=== PATIENT | female | born 1955 | race African-American/Black ===

== ENCOUNTER 2016-09-25 09:32 | Emergency (ER) | payer OTHER ==
[~2016-09-25] VITALS: Ht 160 cm; Wt 115.3 kg
[~2016-09-25 09:32] MED LIST: BYSTOLIC10 MG PO; CYMBALTA30 MG PO; EXFORGE 10/31 TABLET PO; EXFORGE HCT 101 EAC2 PO; HYDROCHLOROTHIA25 MG; HYDROCHLOROTHIA25 MG PO; LIDODERM 5% P1 PATCH TP; MELOXICAM15 MG PO; PROTONIX40 MG PO; VICTOZA0.6 MG/0.2
[2016-09-25 10:58] LABS: EOSINOPHIL (%) 1.3 % (0-5); EOSINOPHIL COUNT 0.1 K/uL (0-0.3); HEMATOCRIT 40.1 % (36.0-46.0); IMMATURE GRANULOCYTE (%) 0.5 % (0.0-0.7); INSTRUMENT ABS NEUTROPHIL CT 4.2 K/uL; LYMPHOCYTE COUNT 1.5 K/uL (1.0-2.8); MCH 25.6 PG (29.0-34.0); MCHC 31.9 G/DL (30.0-36.0); MCV 80.2 FL (83-99); MEAN PLAT.VOLUME 11.9 uM^3 (9.5-12.4); MONOCYTE COUNT 0.3 K/uL (0-0.8); NEUTROPHIL (%) 67.8 % (45-76); NEUTROPHIL COUNT 4.2 K/uL (1.8-6.4); PLATELET COUNT 223 K/uL (156-360); RBC DIS.WIDTH-CV 14.5 % (11.8-14.6); WHITE BLOOD COUNT 6.2 K/uL (4.1-10.2)
[2016-09-25 11:24] LABS: CHLORIDE 105 mEq/L (99-109); POTASSIUM 4.6 mEq/L (3.7-5.4); SODIUM 139 mEq/L (136-147)
[2016-09-25 11:26] LABS: GLUCOSE 95 mg/dL (70-99)
[2016-09-25 11:27] LABS: ANION GAP 14 MEQ/L (2-14)
[2016-09-25 11:28] LABS: TOTAL BILIRUBIN 0.5 mg/dL (0.0-1.0)
[2016-09-25 11:29] LABS: ALKALINE PHOSPHATASE 54 IU/L (3-129)
[2016-09-25 11:30] LABS: GFR ESTIMATE (CALCULATED) 59 mL/min/
[2016-09-25 11:31] LABS: UREA NITROGEN (BUN) 20 mg/dL (9-23)
[2016-09-25 12:57] LABS: ADD MIUA? NO; BILIRUBIN NEGATIVE; BLOOD NEGATIVE; COLOR YELLOW ((YELLOW)); GLUCOSE (STRIP) NEGATIVE; KETONES NEGATIVE; LEUKOCYTES NEGATIVE; NITRITE NEGATIVE; PROTEIN (STRIP) NEGATIVE; SPECIFIC GRAVITY 1.011 (1.000-1.030); UCUL ADDED? NO; UROBILINOGEN 0.2 MG/DL (0.2-1.0)
[2016-09-25 13:49] VITALS: BP 114/69
== END 2016-09-25 13:51 | disposition home or self-care (01) ==
LOC: EXP 09:32 → EME 09:32 → EXP 13:51
PROVIDERS: Physician Assistant
DX: K52.9 Noninfective gastroenteritis and colitis, unspecified (principal); E11.9 Type 2 diabetes mellitus without complications; I10 Essential (primary) hypertension; Z98.84 Bariatric surgery status
CPT/HCPCS: 80053; 81003; 85025; 87493; 87506; 99281; 99285

== ENCOUNTER 2016-11-29 05:06 | Inpatient (IN) | payer OTHER ==
[~2016-11-29] VITALS: Ht 157.5 cm; Wt 109.0 kg
[~2016-11-29 05:06] MED LIST changes: +BRINTELLIX5 MG PO; +CELEBREX200 MG PO; +DIOVAN80 MG PO; +GLUCOPHAGE XR750 MG PO; +IRON325 M1 PO; +LIPITOR10 MG PO; +NEXIUM20 MG PO; +TRADJENTA5 MG PO; +ULTRAM50 MG PO; +VITAMIN D31000 UNI2 PO
[2016-11-29] MEDS ORDERED: ANIMAL CHEWS1 EACH PO (05:54)
[2016-11-29 06:04] VITALS: BP 129/58
[2016-11-29 06:19] LABS: POINT-OF-CARE METER ID UU13113694
[2016-11-29 10:11] LABS: POINT-OF-CARE METER ID UU13113675
[2016-11-29 10:37] LABS: POINT-OF-CARE METER ID UU13113675
[2016-11-29 11:45] VITALS: BP 106/71
[2016-11-29 12:09] LABS: POINT-OF-CARE METER ID UU13113712
[2016-11-29 13:25] VITALS: BP 121/61
[2016-11-29 15:45] VITALS: BP 102/53
[2016-11-29 16:19] LABS: POINT-OF-CARE METER ID UU13113712
[2016-11-29 18:31] VITALS: BP 110/53
[2016-11-29 20:24] VITALS: BP 110/56
[2016-11-29 21:41] LABS: POINT-OF-CARE METER ID UU13113712
[2016-11-30 00:30] VITALS: BP 106/51
[2016-11-30 04:17] VITALS: BP 115/61
[2016-11-30 08:00] VITALS: BP 116/68
[2016-11-30 08:01] LABS: ANION GAP 11 MEQ/L (2-14); CHLORIDE 105 MEQ/L (99-109); GFR ESTIMATE (CALCULATED) 59 mL/min/; GLUCOSE 106 mg/dL (70-99); POTASSIUM 3.6 MEQ/L (3.7-5.4); SAMPLE HEMOLYSIS CHECK 0; SAMPLE ICTERIC CHECK 0; SAMPLE LIPEMIA CHECK 0; SODIUM 140 MEQ/L (136-147); UREA NITROGEN (BUN) 17 mg/dL (9-23)
[2016-11-30 08:09] LABS: POINT-OF-CARE METER ID UU13113712
[2016-11-30 11:50] VITALS: BP 118/61
[2016-11-30 11:51] LABS: POINT-OF-CARE METER ID UU13113712
[2016-11-30 16:06] VITALS: BP 134/61
[2016-11-30 16:47] LABS: POINT-OF-CARE METER ID UU13113712
[2016-11-30 20:04] VITALS: BP 139/74
[2016-11-30 21:46] LABS: POINT-OF-CARE METER ID UU13113712
[2016-12-01] VITALS: BP 138/62
[2016-12-01 04:30] VITALS: BP 175/74
[2016-12-01 07:31] LABS: POINT-OF-CARE METER ID UU13113712
[2016-12-01 08:00] VITALS: BP 123/59
[2016-12-01] MEDS ORDERED: ELIQUIS2.5 MG PO (09:27)
[2016-12-01] MEDS ORDERED: ENDOCET 5-3251 EACH PO (09:27)
[2016-12-01 11:27] LABS: POINT-OF-CARE METER ID UU13113712
[2016-12-01 12:00] VITALS: BP 135/63
[2016-12-01 15:50] VITALS: BP 126/60
[2016-12-01 16:40] LABS: POINT-OF-CARE METER ID UU13113712
[2016-12-01 20:09] VITALS: BP 132/70
[2016-12-01 22:15] LABS: POINT-OF-CARE METER ID UU13113712
[2016-12-02 00:20] VITALS: BP 127/56
[2016-12-02 04:30] VITALS: BP 133/61
[2016-12-02 07:43] LABS: POINT-OF-CARE METER ID UU13113712
[2016-12-02 08:21] VITALS: BP 117/56
== END 2016-12-02 10:30 | DRG 470 ==
LOC: 3WEST 05:06 → 2SOUTH 05:06 → 3WEST 10:55 → 2SOUTH 13:19 → 3WEST 12-02 10:30
PROVIDERS: Orthopaedic Surgery
PROC: 0SRD0J9 Replacement of Left Knee Joint with Synthetic Substitute, Cemented, Open Approach (ICD-10-PCS; principal; 2016-11-29)
DX: M17.12 Unilateral primary osteoarthritis, left knee (principal); Z68.41 Body mass index [BMI] 40.0-44.9, adult; M23.8X1 Other internal derangements of right knee; E78.00 Pure hypercholesterolemia, unspecified; I10 Essential (primary) hypertension; G89.29 Other chronic pain; N32.81 Overactive bladder; E11.42 Type 2 diabetes mellitus with diabetic polyneuropathy; E11.65 Type 2 diabetes mellitus with hyperglycemia; E66.9 Obesity, unspecified
CPT/HCPCS: 71010; 80048; 82948; C1713; J0131; J0690; J1815; J1885; J2250; J7050; J7120; L1820; S0020

== ENCOUNTER 2017-04-17 12:42 | Observation (INO) | payer OTHER ==
[~2017-04-17] VITALS: Ht 154.9 cm; Wt 106.0 kg
[~2017-04-17 12:42] MED LIST changes: +ELIQUIS2.5 MG PO; +ENDOCET 5-3251 EACH PO; +GLUCOPHAGE XR,500 MG PO; -GLUCOPHAGE XR750 MG PO; +WOMEN'S MULTI200 MCG PO
[2017-04-17 14:41] LABS: HEMATOCRIT 39.6 % (36.0-46.0); MCHC 31.6 G/DL (30.0-36.0); RBC DIS.WIDTH-CV 15.7 % (11.8-14.6); RBC DIS.WIDTH-SD 44.6 % (39-53); RED BLOOD COUNT 5.01 M/uL (3.80-5.20); WHITE BLOOD COUNT 6.3 K/uL (4.1-10.2)
[2017-04-17 14:55] LABS: CHLORIDE 106 mEq/L (99-109); POTASSIUM 3.8 mEq/L (3.7-5.4); SODIUM 140 mEq/L (136-147)
[2017-04-17 14:57] LABS: GLUCOSE 87 mg/dL (70-99)
[2017-04-17 14:58] LABS: ANION GAP 11 MEQ/L (2-14)
[2017-04-17 15:01] LABS: GFR ESTIMATE (CALCULATED) > 59 mL/min/
[2017-04-17 15:02] LABS: UREA NITROGEN (BUN) 22 mg/dL (9-23)
[2017-04-17 15:05] LABS: TROP-I INTERPRETATION NEGATIVE; TROPONIN-I < 0.01 ng/mL (0.0-0.30)
[2017-04-17 15:36] LABS: MEAN PLAT.VOLUME 11.4 uM^3 (9.5-12.4); PLAT.SUFFICIENCY ADEQUATE; PLATELET COUNT 171 K/uL (156-360)
[2017-04-17] MEDS ORDERED: [UNRECOGNIZED DRUG - CODE] SC (16:04)
[2017-04-17] MEDS ORDERED: CELEBREX200 MG PO (16:04)
[2017-04-17] MEDS ORDERED: TRAMADOL HCL50 MG PO (16:04)
[2017-04-17 18:57] LABS: LACTATE DEHYDROGENASE 241 IU/L (20-246)
[2017-04-17 19:54] VITALS: BP 144/74
[2017-04-17 20:40] LABS: HDL CHOLESTEROL 57 MG/DL (Desirable>=50); LDL CHOLESTEROL 70 mg/dL (Desirable<100); NON-HDL CHOLESTEROL 81 mg/dL (Desirable<160); TOTAL CHOLESTEROL 138 mg/dL (Desirable<200); TRIGLYCERIDES 56 MG/DL (Normal: <150)
[2017-04-17 20:42] LABS: TROP-I INTERPRETATION NEGATIVE; TROPONIN-I 0.01 ng/mL (0.0-0.30)
[2017-04-17 21:58] LABS: POINT-OF-CARE METER ID UU14162513
[2017-04-17 22:04] VITALS: BP 140/72
[2017-04-17 22:10] VITALS: BP 101/55
[2017-04-17 23:29] VITALS: BP 103/63
[2017-04-18 03:30] LABS: TROP-I INTERPRETATION NEGATIVE; TROPONIN-I < 0.01 ng/mL (0.0-0.30)
[2017-04-18 03:54] VITALS: BP 107/61
[2017-04-18 07:34] LABS: POINT-OF-CARE METER ID UU14162513
[2017-04-18 07:55] VITALS: BP 109/72
[2017-04-18 08:18] LABS: Estimated Average Glucose 140 mg/dL (70-123); HEMOGLOBIN A1c (GLYCOHEMOGLOB) 6.5 % HGB (Below 5.7)
[2017-04-18] MEDS ORDERED: ASPIR-LOW81 MG PO (09:30)
== END 2017-04-18 10:40 | disposition home or self-care (01) ==
LOC: EME 12:42 → EDOF 15:54 → 5WEST 15:54 → EDOF 15:54 → ENRESERV 15:57 → 5WEST 19:07
PROVIDERS: Emergency Medicine; Internal Medicine; Physician Assistant Medical
DX: G45.9 Transient cerebral ischemic attack, unspecified (principal); R07.2 Precordial pain; Z82.49 Family history of ischemic heart disease and other diseases of the circulatory system; E11.40 Type 2 diabetes mellitus with diabetic neuropathy, unspecified; I10 Essential (primary) hypertension; Z98.84 Bariatric surgery status; G89.28 Other chronic postprocedural pain; K21.9 Gastro-esophageal reflux disease without esophagitis; R10.13 Epigastric pain; Z87.442 Personal history of urinary calculi; Z90.710 Acquired absence of both cervix and uterus; Z90.49 Acquired absence of other specified parts of digestive tract; Z80.0 Family history of malignant neoplasm of digestive organs; Z82.3 Family history of stroke; Z79.4 Long term (current) use of insulin
CPT/HCPCS: 70450; 70551; 71020; 80048; 80061; 81003; 82948; 83036; 83615; 84484; 85027; 93005; 93880; 99281; 99285; G0378; J1650; J1815

== ENCOUNTER 2017-06-13 22:13 | Inpatient (IN) | payer OTHER ==
[~2017-06-13] VITALS: Ht 157.5 cm; Wt 109.9 kg
[~2017-06-13 22:13] MED LIST changes: +ASPIR-LOW81 MG PO; +TRAMADOL HCL50 MG PO; +[UNRECOGNIZED DRUG - CODE] SC
[2017-06-14] VITALS (7 sets, daily range): BP systolic 90–128; BP diastolic 48–78
[2017-06-15 00:15] VITALS: BP 107/67
[2017-06-15 04:32] VITALS: BP 104/63
[2017-06-15 08:31] VITALS: BP 121/59
[2017-06-15 09:00] LABS: HEMATOCRIT 36.3 % (36.0-46.0); HEMOGLOBIN 11.3 G/DL (11.9-15.5); MCV 81.9 FL (83-99)
[2017-06-15 09:22] LABS: CHLORIDE 102 MEQ/L (99-109); CREATININE 1.1 MG/DL (0.6-1.3); GFR ESTIMATE (CALCULATED) > 59 mL/min/; GLUCOSE 121 mg/dL (70-99); POTASSIUM 3.8 MEQ/L (3.7-5.4); SODIUM 136 MEQ/L (136-147); UREA NITROGEN (BUN) 19 mg/dL (9-23)
[2017-06-15] MEDS ORDERED: ELIQUIS2.5 MG PO (10:00)
[2017-06-15] MEDS ORDERED: OXYCODONE HCL5 MG PO (10:00)
[2017-06-15 12:00] VITALS: BP 118/68
[2017-06-15 15:59] VITALS: BP 134/66
[2017-06-15 20:12] VITALS: BP 143/77
[2017-06-16] VITALS (7 sets, daily range): BP systolic 107–152; BP diastolic 59–79
[2017-06-17 08:30] VITALS: BP 128/71
== END 2017-06-17 13:03 | DRG 470 ==
LOC: ENRESERV 22:13 → 3WEST 06-14 05:39 → 2SOUTH 06-14 05:39 → 3WEST 06-14 10:37 → 2SOUTH 06-14 11:29 → ENRESERV 06-16 08:27 → 3EAST 06-16 14:46
PROVIDERS: Orthopaedic Surgery
PROC: 0SRC0J9 Replacement of Right Knee Joint with Synthetic Substitute, Cemented, Open Approach (ICD-10-PCS; principal; 2017-06-14)
DX: M17.11 Unilateral primary osteoarthritis, right knee (principal); E66.9 Obesity, unspecified; G89.29 Other chronic pain; M25.569 Pain in unspecified knee; I10 Essential (primary) hypertension; F32.9 Major depressive disorder, single episode, unspecified; E78.00 Pure hypercholesterolemia, unspecified; E11.42 Type 2 diabetes mellitus with diabetic polyneuropathy; F25.9 Schizoaffective disorder, unspecified; M22.40 Chondromalacia patellae, unspecified knee; Z90.710 Acquired absence of both cervix and uterus; Z68.41 Body mass index [BMI] 40.0-44.9, adult
CPT/HCPCS: 71045; 80048; 82948; 85014; 85018; C1713; J0131; J0690; J1885; J2250; J2405; J7030; J7050; J7120; L1820; S0020